=== PATIENT | male | born 1995 | race Caucasian/White ===

== ENCOUNTER 2022-11-26 12:37 | Emergency (ER) | payer MEDICAID ==
[~2022-11-26] VITALS: Ht 188 cm; Wt 127.9 kg
[2022-11-26 12:41] VITALS: BP 135/69; PULSE 79; RESP 18; TEMP 97.6; O2SAT 98
[2022-11-26] MEDS ORDERED: BACITRACIN OINT 500 UNITS/GM PKT TP ONE (13:10)
[2022-11-26 13:44] VITALS: BP 133/69; PULSE 79; RESP 18; TEMP 98; O2SAT 99
== END 2022-11-26 13:44 | disposition home or self-care (01) ==
LOC: MED 12:37
DX: S61.012A Laceration without foreign body of left thumb without damage to nail, initial encounter (principal); R03.0 Elevated blood-pressure reading, without diagnosis of hypertension; Z48.02 Encounter for removal of sutures; X58.XXXA Exposure to other specified factors, initial encounter; Y93.89 Activity, other specified; Y92.89 Other specified places as the place of occurrence of the external cause; Y99.8 Other external cause status
CPT/HCPCS: 99283